=== PATIENT | female | born 1975 | race Hispanic/Latino ===

== ENCOUNTER 2018-05-10 15:17 | Emergency (ER) | payer BC ==
[~2018-05-10] VITALS: Ht 160 cm; Wt 93.0 kg
--- OUTSIDE RECORDS SUMMARY | 2018-05-10 15:19 | XMS REPORT ---
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 Allergies, Adverse Reactions, Alerts Allergy Name Allergy Type Status Severity Reaction(s) Onset Date Inactive Date Treating Clinician Comments No Known Allergies DA Active U 2016-08-30 00:00:00 Medications This patient has no known medications. Results Test Description Test Time Test Comments Text Results Atomic Results Result Comments Mammo Digital Mammography Screening CLINICAL INDICATION: Z12.31 Encntr screen mammogram for malignant neoplasm of breastTECHNIQUE: Digital acquisition of the breasts is performed on the Siemens Mammomat Inspiration mammography unit. Computer Assisted Detection (CAD) is then accomplished using PowerPractical Technology. FINDINGS:COMPARISON STUDY: March 2016, January 2015The breast parenchyma is heterogeneously dense which may obscure small masses.No dominant mass, skin thickening, architectural distortion or suspicious microcalcifications are noted. IMPRESSION:Benign bilateral mammogram. Negative.RECOMMENDATION: Routine annual screening mammography per ACR guidelines.Category: BIRADS 2 - Benign. For internal use only. N:12
[2018-05-10] MEDS ORDERED: SODIUM CHLORIDE 0.9% 1000ML 1,000 ML IV SCH (17:00)
[2018-05-10] MEDS ORDERED: FAMOTIDINE 20 MG/2 ML VIAL IV STA (17:00)
[2018-05-10] MEDS ORDERED: DICYCLOMINE HCL 20 MG/2 ML VIAL IM ONE ×2 (17:00→17:15)
[2018-05-10] MEDS ORDERED: IOPAMIDOL 370 MG/ML 50ML INFUS..BTL INJ ONE (17:45)
[2018-05-10] MEDS ORDERED: DICYCLOMINE HCL 20 MG TAB PO ONE (18:30)
--- NOTE | 2018-05-10 18:40 | Diagnostic Imaging Report ---
EXAMINATION: CT of the abdomen and pelvis with contrast. TECHNIQUE: Spiral CT images of the abdomen and pelvis were performed from the lung bases to the lesser trochanters after the intravenous administration of 100 cc of Isovue 300. Coronal and sagittal reformatted images were obtained. COMPARISON: None. CLINICAL HISTORY:Cramping, abdominal pain for one day DISCUSSION: ABDOMEN/PELVIS: LOWER THORAX:Unremarkable. HEPATOBILIARY: No focal hepatic lesions. Diffusely decreased hepatic parenchymal density suggesting hepatic steatosis. No intra or extrahepatic biliary ductal dilation. GALLBLADDER: cholecystectomy. SPLEEN: No splenomegaly. PANCREAS: No focal masses or ductal dilatation. ADRENALS: No adrenal nodules. KIDNEYS/URETERS: No hydronephrosis, stones, or solid mass lesions. PELVIC ORGANS/BLADDER: The bladder is normal. Hysterectomy. PERITONEUM/RETROPERITONEUM: No free air or fluid. LYMPH NODES: No intra-abdominal, retroperitoneal, pelvic or inguinal lymphadenopathy. VESSELS: The celiac trunk,superior and inferior mesenteric and bilateral renal arteries are patent The portal, superior mesenteric and splenic veins are patent. GI TRACT: Diffuse mild colonic edema with mild adjacent inflammatory stranding, clinically about the transverse colon. No intra-abdominal free air. No obstruction. Postsurgical changes of gastric sleeve.. BONES AND SOFT TISSUE: No bony destructive lesions. No soft tissue abnormalities. IMPRESSION: Mild nonspecific colitis of the transverse and descending colon is without evidence of obstruction or perforation. Signed by: Michael Ramirez MD on 05/10/2018 6:37 PM
[2018-05-10] MEDS ORDERED: MORPHINE SULFATE 2 MG/ML SYR 1ML IV STA ×2 (18:59→20:22)
[2018-05-10] MEDS ORDERED: CIPROFLOXACIN 400 MG/D5W 200ML 200 ML IV SCH (19:00)
[2018-05-10] MEDS ORDERED: METRONIDAZOLE 500MG/NS 100ML 100 ML IV SCH (19:00)
[2018-05-10] MEDS ORDERED: ONDANSETRON HCL INJ 2MG/ML 2ML 2 MG/ML VIAL IV STA (19:04)
[2018-05-10] MEDS ORDERED: ONDANSETRON ODT8 MG PO (19:19)
[2018-05-10] MEDS ORDERED: CIPRO500 MG PO (19:21)
[2018-05-10] MEDS ORDERED: FLAGYL500 MG PO (19:22)
[2018-05-10] MEDS ORDERED: DICYCLOMINE HCL20 MG PO (19:23)
[2018-05-10] MEDS ORDERED: LEVSIN0.125 MG SL (19:25)
== END 2018-05-10 21:34 | disposition home or self-care (01) ==
LOC: FSED 15:17
DX: R10.13 Epigastric pain (principal); R10.84 Generalized abdominal pain; R19.7 Diarrhea, unspecified; K52.9 Noninfective gastroenteritis and colitis, unspecified; E01.8 Other iodine-deficiency related thyroid disorders and allied conditions; F32.0 Major depressive disorder, single episode, mild
CPT/HCPCS: 74177; 99284; J0500; J2270; J2405; Q9967

== ENCOUNTER 2021-01-02 18:09 | Emergency (ER) | payer BC ==
[~2021-01-02] VITALS: Ht 160 cm; Wt 93.0 kg
[~2021-01-02 18:09] MED LIST: CIPRO500 MG PO; DICYCLOMINE HCL20 MG PO; FLAGYL500 MG PO; LEVSIN0.125 MG SL; ONDANSETRON ODT8 MG PO
[2021-01-02] MEDS ORDERED: SODIUM CHLORIDE 0.9% 1000ML 1,000 ML IV SCH (18:30)
[2021-01-02] MEDS ORDERED: ONDANSETRON HCL INJ 2MG/ML 2ML 2 MG/ML VIAL IV STA ×2 (18:30→20:40)
[2021-01-02] MEDS ORDERED: KETOROLAC TROMETHAMINE 30 MG/ML VIAL IV STA (18:30)
[2021-01-02] MEDS ORDERED: KETOROLAC TROMETHAMINE 30 MG/ML VIAL ONE (18:33)
[2021-01-02] MEDS ORDERED: SODIUM CHLORIDE 0.9% 1000ML 1,000 ML ONE (18:33)
[2021-01-02] MEDS ORDERED: ONDANSETRON HCL INJ 2MG/ML 2ML 2 MG/ML VIAL ONE ×2 (18:33→20:55)
[2021-01-02] MEDS ORDERED: IOPAMIDOL 370 MG/ML 200 ML INFUS..BTL INJ ONE (18:51)
[2021-01-02] MEDS ORDERED: SODIUM CHLORIDE 0.9% 50ML 50 ML ONE (18:52)
[2021-01-02] MEDS ORDERED: Morphine 4mg Syringe 4 MG/ML INJ IV ONE (20:45)
[2021-01-02] MEDS ORDERED: Morphine 4mg Syringe 4 MG/ML INJ ONE (20:55)
== END 2021-01-02 21:54 | disposition home or self-care (01) ==
LOC: FSED 18:41
DX: R10.31 Right lower quadrant pain (principal); E03.9 Hypothyroidism, unspecified; F32.A Depression, unspecified; Z98.84 Bariatric surgery status
CPT/HCPCS: 74177; 81003; 99284; J1885; J2270; J2405; J7030; Q9967

== ENCOUNTER 2022-12-05 09:04 | Emergency (ER) | payer OTHER, BC ==
[~2022-12-05] VITALS: Ht 160 cm; Wt 81.6 kg
[2022-12-05 09:14] VITALS: O2SAT 100
[2022-12-05] MEDS ORDERED: IBUPROFEN 200 MG TAB PO ONE (09:30)
[2022-12-05] MEDS ORDERED: ACETAMINOPHEN 325 MG TAB PO ONE (09:30)
[2022-12-05] MEDS ORDERED: IBUPROFEN 600 MG TAB ONE (09:38)
[2022-12-05] MEDS ORDERED: ACETAMINOPHEN 325 MG TAB ONE (09:38)
[2022-12-05] MEDS ORDERED: IBUPROFEN 600 MG TAB PO STA (09:39)
[2022-12-05] MEDS ORDERED: ULTRAM 50MG50 MG PO (09:44)
[2022-12-05] MEDS ORDERED: NAPROSYN500 MG PO (09:44)
== END 2022-12-05 10:39 | disposition home or self-care (01) ==
LOC: FSED 09:08
DX: S20.211A Contusion of right front wall of thorax, initial encounter (principal); W01.0XXA Fall on same level from slipping, tripping and stumbling without subsequent striking against object, initial encounter; Y92.89 Other specified places as the place of occurrence of the external cause; E03.9 Hypothyroidism, unspecified
CPT/HCPCS: 71250; 99283